=== PATIENT | female | born 1960 | race Caucasian/White ===

== ENCOUNTER 2016-12-17 10:47 | Emergency (ER) | payer OTHER ==
[2016-12-17 11:14] VITALS: BP 126/80
--- NOTE | 2016-12-17 13:35 | UC ---
Jonathon Dove Aidan, scribed for Lily Savage DO on 12/17/16 at 1209 . Skin Complaint HPI - HPI Summary HPI Summary: 56 y/o female presents to the Urgent Care with a complaint of an acute, constant , moderately painful rash. It started as a lump in her left eyebrow. 6 days ago , she noticed a sore, red pimple above her left brow. 4 days ago, she developed a moderate headache and soreness in her neck with very tender lymph nodes. 2 days ago, her left eyebrow became inflamed and she developed a pus-filled lesion just above the left eye. Yesterday and today, she developed several more blister-like lesions on the eye lid and forehead on the left only. These lesions are as painful and pain is described as "zinging."Currently, she feels pressure and heat above the left eye. Other associated symptoms include some left eye goop and a mild temp today of 100.2 with temporal artey scan. The patient denies any nausea, vomiting, dysuria, or changes in urination. Hx of measles, but no recollection of hx of chickenpox. - History of Current Complaint Chief Complaint: UCSkin Time Seen by Provider: 12/17/16 11:49 Stated Complaint: EYE IRRITATION, AND FACIAL RASH Hx Obtained From: Patient Hx Last Menstrual Period: 56 y/o female ?: No Onset/Duration: Gradual Onset, Lasting Days, Still Present Skin Exposure Onset/Duration: Days Ago Timing: Constant Onset Severity: Moderate Current Severity: Moderate Location: Discrete - just above left eye (around the left brow) Character: Redness, Painful Aggravating: Touch Alleviating: Nothing Associated Signs & Symptoms: Positive: Fever - of 100.2 today, Rash, Drainage, Tenderness. Negative: Negative - inflammation of left eye brow, abscess, neck soreness, REY, pressure and heat above left eye, left eye goop, Nausea, Vomiting , Difficulty Breathing, Chills, Cough, Chest Pain, Hoarseness, Throat Tightening , Abdominal Pain, Lightheadedness - Allergy/Home Medications Allergies/Adverse Reactions: Allergies Allergy/AdvReac Type Severity Reaction Status Date / Time Penicillins Allergy Intermediate hives, Verified 12/17/16 11:06 facial/neck swelling Sulfa Antibiotics Allergy Intermediate Hives Verified 12/17/16 11:06 Review of Systems Constitutional: Negative Skin: Other - inflammation over left eye, abscess Eyes: Other - left eye goop ENT: Negative Respiratory: Negative Cardiovascular: Negative Gastrointestinal: Negative Genitourinary: Negative Motor: Negative Neurovascular: Negative Musculoskeletal: Negative Neurological: Headache - and pressure and heat above the left eye Psychological: Negative All Other Systems Reviewed And Are Negative: Yes PMH/Surg Hx/FS Hx/Imm Hx Previously Healthy: Yes - Surgical History Surgical History: Yes Surgery Procedure, Year, and Place: Right ankle pins and screws- removal - Family History Known Family History: Positive: Hypertension Negative: Cardiac Disease, Diabetes - Social History Occupation: Employed Full-time Lives: With Family Alcohol Use: Occasionally Substance Use Type: None Smoking Status (MU): Never Smoked Tobacco Have You Smoked in the Last Year: No Physical Exam Triage Information Reviewed: Yes Appearance: Well-Appearing, No Pain Distress, Well-Nourished Vital Signs: Initial Vital Signs Temp 100.2 F 12/17/16 11:06 Pulse 72 12/17/16 11:06 Resp 16 12/17/16 11:06 BP 126/80 12/17/16 11:06 Pulse Ox 100 12/17/16 11:06 Vital Signs Reviewed: Yes Eyes: Positive: Conjunctiva Clear. Negative: Discharge ENT: Positive: Hearing grossly normal, Pharynx normal, TMs normal. Negative: Nasal congestion, Nasal drainage, Muffled/hoarse voice Neck exam: Normal Neck: Positive: Supple, Tenderness @ - left sided pre-auricular and cervical nodes, Enlarged Nodes @ Respiratory: Positive: Lungs clear, Normal breath sounds, No respiratory distress, No accessory muscle use Cardiovascular: Positive: RRR, No Murmur Musculoskeletal Exam: Normal Neurological: Positive: Alert, Muscle Tone Normal Psychological Exam: Normal Psychological: Positive: Age Appropriate Behavior Skin Exam: Normal, Other - vesicular legions in trigeminal division 1 dermatome warm, dry, normal color Course/Dx - Differential Diagnoses - Skin Complaint Differential Diagnoses: Allergic Reaction, Cellulitis, Contact Dermatitis, Impetigo, Varicella Zoster, Other - folliculitis - Diagnoses Provider Diagnoses: shingles Discharge - Discharge Plan Condition: Stable Disposition: HOME Prescriptions: HYDROcodone/ACETAMIN 5-325 MG* [[place] 5-325 TAB*] 1 tab PO Q6H PRN #14 tab MDD 4 TABS PRN Reason: Pain Patient Education Materials: Shingles (ED) Referrals: Scott Vega MD [Primary Care Provider] - If Needed Lb Perdomo MD [Medical Doctor] - (Please call the office to make an appoinmtent to be see tomorrow.) Additional Instructions: VALTREX: You should be taking 1 gram 3 times daily for 1 week. Please mixing picker tender the script you PCP sent in to the pharmacy. VALTREX is used to treat infections caused by the Herpes family of viruses. It's available as capsules or ointment. VALTREX is most effective if started at the first sign of the viral outbreak. It can decrease the severity and duration of symptoms. However, it doesn't eliminate the virus from the body completely. If you're prone to repeated outbreaks of herpes, you'll continue to have attacks. Take the pills for the full recommended course. Occasionally, mild nausea or headaches may occur. Call the doctor if you develop wheezing, itching, rash, shortness of breath , or lightheadedness. ORAL NARCOTIC MEDICATION: You have been given a prescription for pain control. This medication is a narcotic. It's best taken with food, as nausea can result if taken on an empty stomach. Don't operate machinery or drive within six hours of taking this medication. Do not combine this medicine with alcohol, or with any medication which can cause sedation (such as cold tablets or sleeping pills) unless you get permission from the physician. Narcotics tend to cause constipation. If possible, drink plenty of fluids and eat a diet high in fiber and fruits. The documentation as recorded by the Jonathon ewing Aidan accurately reflects the service I personally performed and the decisions made by me, Lily Savage DO.
== END 2016-12-17 12:22 | disposition home or self-care (01) ==
LOC: UCEAST 10:47
DX: B02.9 Zoster without complications (principal); Z88.0 Allergy status to penicillin; Z88.2 Allergy status to sulfonamides
CPT/HCPCS: 99212; G0463